=== PATIENT | female | born 1970 | race Caucasian/White ===

== ENCOUNTER 2017-07-18 14:53 | Observation (INO) | payer BC ==
[~2017-07-18] VITALS: Ht 167.6 cm; Wt 76.2 kg
[~2017-07-18 14:53] MED LIST: AMBIEN10 MG PO; BACTRIM,SEPT1 TABLET PO; Ecotrin PO; FLONASE16 G1 BOTH NARES; Hydrodiuril,Oretic,E PO; TRANSDERM-SCO1 PATCH TD; TYLENOL EXTRA500 MG PO; Tylenol Regular Stre PO; XANAX0.5 MG PO; ZESTORETIC 20-1 EAC1 PO
[2017-07-18 15:34] LABS: HEMATOCRIT 44.5 % (36.0-46.0); MCH 29.1 PG (29.0-34.0); MCHC 34.2 G/DL (30.0-36.0); MCV 85.1 FL (83-99); MEAN PLAT.VOLUME 11.3 uM^3 (9.5-12.4); PLATELET COUNT 303 K/uL (156-360); RBC DIS.WIDTH-SD 37.2 % (39-53); RED BLOOD COUNT 5.23 M/uL (3.80-5.20); WHITE BLOOD COUNT 13.8 K/uL (4.1-10.2)
[2017-07-18 15:43] LABS: CHLORIDE 102 mEq/L (99-109); POTASSIUM 3.1 mEq/L (3.7-5.4); SODIUM 136 mEq/L (136-147)
[2017-07-18 15:44] LABS: GLUCOSE 105 mg/dL (70-99)
[2017-07-18 15:46] LABS: ANION GAP 11 MEQ/L (2-14)
[2017-07-18 15:48] LABS: GFR ESTIMATE (CALCULATED) > 59 mL/min/
[2017-07-18 15:49] LABS: UREA NITROGEN (BUN) 21 mg/dL (9-23)
[2017-07-18 15:55] LABS: TROP-I INTERPRETATION NEGATIVE; TROPONIN-I < 0.01 ng/mL (0.0-0.30)
[2017-07-18 15:56] LABS: QUANTITATIVE HCG < 4.0 MIU/ML
[2017-07-18 17:47] LABS: TROP-I INTERPRETATION NEGATIVE; TROPONIN-I < 0.01 ng/mL (0.0-0.30)
[2017-07-18] MEDS ORDERED: DEXEDRINE15 MG PO ×2 (19:02→19:03)
[2017-07-18] MEDS ORDERED: VITAMIN B-125000 MCG SL (19:03)
[2017-07-18] MEDS ORDERED: TOPAMAX50 MG PO (19:03)
[2017-07-18] MEDS ORDERED: NUVIGIL200 MG PO (19:03)
[2017-07-19 00:30] VITALS: BP 106/65
[2017-07-19 01:10] LABS: TROP-I INTERPRETATION NEGATIVE; TROPONIN-I < 0.01 ng/mL (0.0-0.30)
[2017-07-19 01:18] LABS: METH RESISTANT S AUREUS PCR NEGATIVE (NEGATIVE)
[2017-07-19 01:22] LABS: PROBE CHECK PASS; SPECIMEN PROCESSING CONTROL PASS
[2017-07-19 03:29] VITALS: BP 105/54
[2017-07-19 05:44] LABS: HEMATOCRIT 38.1 % (36.0-46.0); MCH 30.1 PG (29.0-34.0); MCHC 34.6 G/DL (30.0-36.0); MCV 86.8 FL (83-99); MEAN PLAT.VOLUME 11.7 uM^3 (9.5-12.4); PLATELET COUNT 229 K/uL (156-360); RBC DIS.WIDTH-CV 12.3 % (11.8-14.6); RED BLOOD COUNT 4.39 M/uL (3.80-5.20); WHITE BLOOD COUNT 9.4 K/uL (4.1-10.2)
[2017-07-19 05:49] LABS: TROP-I INTERPRETATION NEGATIVE; TROPONIN-I < 0.01 ng/mL (0.0-0.30)
[2017-07-19 07:59] LABS: ANION GAP 10 MEQ/L (2-14); CHLORIDE 106 MEQ/L (99-109); GFR ESTIMATE (CALCULATED) > 59 mL/min/; GLUCOSE 102 mg/dL (70-99); POTASSIUM 3.8 MEQ/L (3.7-5.4); SAMPLE HEMOLYSIS CHECK 0; SAMPLE ICTERIC CHECK 0; SAMPLE LIPEMIA CHECK 0; SODIUM 137 MEQ/L (136-147); UREA NITROGEN (BUN) 18 mg/dL (9-23)
[2017-07-19 08:42] VITALS: BP 99/54
[2017-07-19 11:22] VITALS: BP 96/52
== END 2017-07-19 15:44 | disposition home or self-care (01) ==
LOC: EME 14:53 → EDOF 21:24 → 5WEST 21:24 → EDOF 21:24 → ENRESERV 21:30 → 5WEST 22:22
PROVIDERS: Hospitalist; Pediatrics Pediatric Infectious Diseases; Physician Assistant Medical
DX: R55 Syncope and collapse (principal); R94.31 Abnormal electrocardiogram [ECG] [EKG]; E87.6 Hypokalemia; I10 Essential (primary) hypertension; G47.30 Sleep apnea, unspecified; Z83.3 Family history of diabetes mellitus
CPT/HCPCS: 70450; 80048; 84484; 84702; 85027; 87641; 93005; 93306; 99281; 99285; G0378; J1650; J7030